=== PATIENT | female | born 1980 | race Caucasian/White ===

== ENCOUNTER 2016-12-19 11:14 | Emergency (ER) | payer MEDICAID ==
[2010-02-22 22:03] VITALS: BMI 35.5
== END 2016-12-19 13:37 | disposition home or self-care (01) ==
LOC: D.ER 11:14
DX: S00.81XA Abrasion of other part of head, initial encounter (principal); Y04.2XXA Assault by strike against or bumped into by another person, initial encounter; Y93.89 Activity, other specified; Y92.89 Other specified places as the place of occurrence of the external cause; S00.03XA Contusion of scalp, initial encounter; S40.022A Contusion of left upper arm, initial encounter; S40.021A Contusion of right upper arm, initial encounter; S80.12XA Contusion of left lower leg, initial encounter; S80.11XA Contusion of right lower leg, initial encounter; S20.219A Contusion of unspecified front wall of thorax, initial encounter; H11.30 Conjunctival hemorrhage, unspecified eye; S22.22XA Fracture of body of sternum, initial encounter for closed fracture; F17.200 Nicotine dependence, unspecified, uncomplicated

== ENCOUNTER 2016-12-23 15:32 | Emergency (ER) | payer MEDICAID ==
[2010-02-22 22:03] VITALS: BMI 35.5
[2016-12-23 17:57] LABS: APPEARANCE HAZY (CLEAR); BACTERIA FEW /hpf (NONE SEEN); BILIRUBIN NEGATIVE (NEGATIVE); COLOR STRAW (YELLOW); EPITHELIAL CELLS 0-5 /hpf (0-5); GLUCOSE NEGATIVE (NEGATIVE); KETONE NEGATIVE (NEGATIVE); LEUKOCYTE ESTERASE 2+ (NEGATIVE); NITRITE NEGATIVE (NEGATIVE); PROTEIN NEGATIVE (NEGATIVE); UROBILINOGEN NORMAL (NORMAL)
[2016-12-23 17:58] LABS: MUCUS <1+ /lpf (NONE SEEN)
== END 2016-12-23 19:00 | disposition home or self-care (01) ==
LOC: D.ER 15:32 → EDBD 15:32 → D.ER 19:00
PROVIDERS: Physician Assistant
DX: R07.89 Other chest pain (principal); S22.20XA Unspecified fracture of sternum, initial encounter for closed fracture; Y04.8XXA Assault by other bodily force, initial encounter; Y93.89 Activity, other specified; Y92.89 Other specified places as the place of occurrence of the external cause; R31.9 Hematuria, unspecified; A59.9 Trichomoniasis, unspecified; N39.0 Urinary tract infection, site not specified; F17.200 Nicotine dependence, unspecified, uncomplicated

== ENCOUNTER 2017-01-18 17:12 | Emergency (ER) | payer MEDICAID ==
[2010-02-22 22:03] VITALS: BMI 35.5
[2017-01-18 17:36] LABS: APPEARANCE CLEAR (CLEAR); BACTERIA FEW /hpf (NONE SEEN); BILIRUBIN NEGATIVE (NEGATIVE); COLOR YELLOW (YELLOW); EPITHELIAL CELLS 0-5 /hpf (0-5); GLUCOSE NEGATIVE (NEGATIVE); KETONE NEGATIVE (NEGATIVE); LEUKOCYTE ESTERASE NEGATIVE (NEGATIVE); NITRITE NEGATIVE (NEGATIVE); PROTEIN NEGATIVE (NEGATIVE); RED CELLS - URINE 0-5 /hpf (0-5); UROBILINOGEN NORMAL (NORMAL); WHITE CELLS - URINE 0-5 /hpf (0-5)
== END 2017-01-18 19:01 | disposition home or self-care (01) ==
LOC: D.ER 17:12 → EDBD 17:12 → D.ER 19:01
PROVIDERS: Emergency Medicine
DX: J01.90 Acute sinusitis, unspecified (principal); F17.200 Nicotine dependence, unspecified, uncomplicated

== ENCOUNTER 2017-03-12 17:32 | Emergency (ER) | payer MEDICAID ==
[2010-02-22 22:03] VITALS: BMI 35.5
== END 2017-03-12 20:43 | disposition home or self-care (01) ==
LOC: EDBD 17:32 → D.ER 17:32
DX: S05.02XA Injury of conjunctiva and corneal abrasion without foreign body, left eye, initial encounter (principal); X58.XXXA Exposure to other specified factors, initial encounter; Y93.89 Activity, other specified; Y92.89 Other specified places as the place of occurrence of the external cause; F17.200 Nicotine dependence, unspecified, uncomplicated

== ENCOUNTER 2017-07-06 08:37 | Emergency (ER) | payer MEDICAID ==
[2010-02-22 22:03] VITALS: BMI 35.5
== END 2017-07-06 09:15 | disposition home or self-care (01) ==
LOC: D.ER 08:37 → EDBD 08:37 → D.ER 09:15
DX: S00.12XA Contusion of left eyelid and periocular area, initial encounter (principal); X58.XXXA Exposure to other specified factors, initial encounter; Y93.89 Activity, other specified; Y92.89 Other specified places as the place of occurrence of the external cause; S05.02XA Injury of conjunctiva and corneal abrasion without foreign body, left eye, initial encounter; M54.5 Low back pain; F17.200 Nicotine dependence, unspecified, uncomplicated

== ENCOUNTER 2017-07-16 20:02 | Emergency (ER) | payer MEDICAID ==
[2010-02-22 22:03] VITALS: BMI 35.5
== END 2017-07-16 20:39 | disposition home or self-care (01) ==
LOC: D.ER 20:02
DX: S46.912A Strain of unspecified muscle, fascia and tendon at shoulder and upper arm level, left arm, initial encounter (principal); X58.XXXA Exposure to other specified factors, initial encounter; Y93.79 Activity, other specified sports and athletics; Y92.89 Other specified places as the place of occurrence of the external cause; M25.512 Pain in left shoulder; M54.2 Cervicalgia; F17.200 Nicotine dependence, unspecified, uncomplicated

== ENCOUNTER 2017-08-24 06:48 | Emergency (ER) | payer MEDICAID ==
[2010-02-22 22:03] VITALS: BMI 35.5
[2017-08-24 08:01] LABS: HCG URINE NEGATIVE (NEGATIVE)
[2017-08-24 08:07] LABS: BASOPHILS 0.4 % (0-2); EOSINOPHILS 4.5 % (0-7); HEMATOCRIT 33.9 % (36.0-48.0); HEMOGLOBIN 10.9 g/dL (12-16); IMMATURE GRANULOCYTES 0.2 % (0-5); LYMPHOCYTES 40.8 % (15-50); MCH 26.6 pg (26.0-34.0); MCHC 32.2 g/dL (31.0-37.0); MCV 82.7 fL (80.0-100.0); MEAN PLATELET VOLUME 10.2 fL (7.4-10.4); MONOCYTES 10.6 % (2-11); NEUTROPHILS 43.5 % (40-80); RDW 14.3 % (11.5-14.5); WBC 5.6 10x3/uL (4.8-10.8)
[2017-08-24 08:09] LABS: APPEARANCE HAZY (CLEAR); BACTERIA MODERATE /hpf (NONE SEEN); BILIRUBIN NEGATIVE (NEGATIVE); COLOR YELLOW (YELLOW); GLUCOSE NEGATIVE (NEGATIVE); KETONE SMALL mg/dL (NEGATIVE); MUCUS >1+ /lpf (NONE SEEN); NITRITE NEGATIVE (NEGATIVE); PROTEIN NEGATIVE (NEGATIVE); RED CELLS - URINE 0-5 /hpf (0-5); UROBILINOGEN NORMAL (NORMAL); WHITE CELLS - URINE 0-5 /hpf (0-5)
[2017-08-24 08:11] LABS: ALBUMIN 3.6 g/dL (3.4-5.0); ALKALINE PHOSPHATASE 65 U/L (46-116); ALT (SGPT) 18 U/L (10-68); BILIRUBIN - TOTAL 0.53 mg/dL (0.2-1.3); CALC OSMOLALITY 270 mosm/kg (275-300); CALCIUM 8.8 mg/dL (8.5-10.1); CARBON DIOXIDE 26.2 mmol/L (21.0-32.0); CHLORIDE - SERUM 104 mmol/L (98-107); CREATININE - SERUM 0.9 mg/dL (0.6-1.3); GLUCOSE 74 mg/dL (74-106); POTASSIUM - SERUM 3.2 mmol/L (3.5-5.1); PROTEIN - SERUM 7.3 g/dL (6.4-8.2); SODIUM 136 mmol/L (136-145); UREA NITROGEN 12 mg/dL (7-18); eGFR NON AFRICAN AMERICAN 75 mL/min (90-120)
[2017-08-24 08:17] LABS: PLATELET COUNT 245 10x3/uL (130-400)
== END 2017-08-24 08:56 | disposition home or self-care (01) ==
LOC: D.ER 06:48
PROVIDERS: Emergency Medicine
DX: S00.83XA Contusion of other part of head, initial encounter (principal); Y04.2XXA Assault by strike against or bumped into by another person, initial encounter; Y93.89 Activity, other specified; Y92.029 Unspecified place in mobile home as the place of occurrence of the external cause; F17.200 Nicotine dependence, unspecified, uncomplicated

== ENCOUNTER 2017-09-05 05:01 | Emergency (ER) | payer MEDICAID ==
[2010-02-22 22:03] VITALS: BMI 35.5
== END 2017-09-05 05:33 | disposition home or self-care (01) ==
LOC: D.ER 05:01
DX: S70.01XA Contusion of right hip, initial encounter (principal); Y04.2XXA Assault by strike against or bumped into by another person, initial encounter; Y93.89 Activity, other specified; Y92.89 Other specified places as the place of occurrence of the external cause; S00.83XA Contusion of other part of head, initial encounter; F17.200 Nicotine dependence, unspecified, uncomplicated

== ENCOUNTER 2017-09-15 18:51 | Emergency (ER) | payer MEDICAID ==
[2010-02-22 22:03] VITALS: BMI 35.5
== END 2017-09-15 20:45 | disposition home or self-care (01) ==
LOC: D.ER 18:51
DX: S62.315A Displaced fracture of base of fourth metacarpal bone, left hand, initial encounter for closed fracture (principal); Y04.2XXA Assault by strike against or bumped into by another person, initial encounter; Y93.89 Activity, other specified; Y92.029 Unspecified place in mobile home as the place of occurrence of the external cause; F17.200 Nicotine dependence, unspecified, uncomplicated

== ENCOUNTER 2017-09-22 08:54 | Emergency (ER) | payer MEDICAID ==
[2010-02-22 22:03] VITALS: BMI 35.5
== END 2017-09-22 09:37 | disposition home or self-care (01) ==
LOC: D.ER 08:54
DX: S62.603G Fracture of unspecified phalanx of left middle finger, subsequent encounter for fracture with delayed healing (principal); X58.XXXD Exposure to other specified factors, subsequent encounter

== ENCOUNTER 2017-10-02 13:12 | Emergency (ER) | payer MEDICAID ==
[2010-02-22 22:03] VITALS: BMI 35.5
== END 2017-10-02 16:43 | disposition home or self-care (01) ==
LOC: D.ER 13:12
DX: H11.152 Pinguecula, left eye (principal); M79.645 Pain in left finger(s); F17.200 Nicotine dependence, unspecified, uncomplicated

== ENCOUNTER 2018-02-20 08:08 | Emergency (ER) | payer MEDICAID ==
[2010-02-22 22:03] VITALS: BMI 35.5
== END 2018-02-20 08:09 | disposition home or self-care (01) ==
LOC: D.ER 08:08
DX: H57.12 Ocular pain, left eye (principal); R10.9 Unspecified abdominal pain; S76.012A Strain of muscle, fascia and tendon of left hip, initial encounter; Y04.2XXA Assault by strike against or bumped into by another person, initial encounter; Y93.89 Activity, other specified; Y92.89 Other specified places as the place of occurrence of the external cause; F17.200 Nicotine dependence, unspecified, uncomplicated

== ENCOUNTER 2018-06-27 12:32 | Emergency (ER) | payer MEDICAID ==
[2010-02-22 22:03] VITALS: BMI 35.5
== END 2018-06-27 15:07 | disposition left against medical advice (07) ==
LOC: D.ER 12:32
DX: R20.2 Paresthesia of skin (principal)

== ENCOUNTER 2019-03-25 19:56 | Emergency (ER) | payer SELFPAY ==
[2019-03-25 20:13] VITALS: BMI 35.5
[2019-03-25] MEDS ORDERED: NAPROSYN500 MG PO (20:48)
[2019-03-25 21:08] VITALS: BP 130/69
== END 2019-03-25 21:08 | disposition home or self-care (01) ==
LOC: D.ER 19:56
DX: S62.337A Displaced fracture of neck of fifth metacarpal bone, left hand, initial encounter for closed fracture (principal); Y04.2XXA Assault by strike against or bumped into by another person, initial encounter; Y93.89 Activity, other specified; Y92.019 Unspecified place in single-family (private) house as the place of occurrence of the external cause; S06.0X9A Concussion with loss of consciousness of unspecified duration, initial encounter

== ENCOUNTER 2019-06-29 12:59 | Emergency (ER) | payer SELFPAY ==
[~2019-06-29] VITALS: Ht 167.6 cm; Wt 63.6 kg
[~2019-06-29 12:59] MED LIST: NAPROSYN500 MG PO
[2019-06-29 13:06] VITALS: Ht 167.6 cm; Wt 63.6 kg
[2019-06-29 13:52] LABS: ALBUMIN 3.1 g/dL (3.4-5.0); ALKALINE PHOSPHATASE 55 U/L (46-116); ALT (SGPT) 12 U/L (10-68); BILIRUBIN - TOTAL 0.52 mg/dL (0.2-1.3); CALC OSMOLALITY 280 mosm/kg (275-300); CALCIUM 8.8 mg/dL (8.5-10.1); CARBON DIOXIDE 28.3 mmol/L (21.0-32.0); CHLORIDE - SERUM 108 mmol/L (98-107); CREATININE - SERUM 0.8 mg/dL (0.6-1.3); GLUCOSE 92 mg/dL (74-106); PROTEIN - SERUM 6.5 g/dL (6.4-8.2); SODIUM 141 mmol/L (136-145); UREA NITROGEN 12 mg/dL (7-18); eGFR NON AFRICAN AMERICAN 85 mL/min (90-120)
[2019-06-29 14:03] LABS: CREATINE KINASE 50 UL (21-215); TROPONIN-I < 0.017 ng/mL (0.000-0.060)
[2019-06-29 14:09] LABS: BASOPHILS 0.8 % (0-2); EOSINOPHILS 4.7 % (0-7); HEMATOCRIT 35.8 % (36.0-48.0); HEMOGLOBIN 11.7 g/dL (12-16); LYMPHOCYTES 38.6 % (15-50); MCH 26.9 pg (26.0-34.0); MCHC 32.7 g/dL (31.0-37.0); MCV 82.3 fL (80.0-100.0); MEAN PLATELET VOLUME 9.8 fL (7.4-10.4); MONOCYTES 14.2 % (2-11); NEUTROPHILS 41.7 % (40-80); PLATELET COUNT 245 10x3/uL (130-400); RBC 4.35 10x6/uL (4.00-5.40); RDW 15.6 % (11.5-14.5); WBC 4.9 10x3/uL (4.8-10.8)
[2019-06-29] MEDS ORDERED: ROBAXIN500 MG PO (14:52)
[2019-06-29] MEDS ORDERED: NAPROSYN500 MG PO (14:52)
[2019-06-29 15:50] VITALS: BP 114/63
== END 2019-06-29 15:50 | disposition home or self-care (01) ==
LOC: D.ER 12:59
PROVIDERS: Family Medicine
DX: R09.1 Pleurisy (principal); F17.200 Nicotine dependence, unspecified, uncomplicated

== ENCOUNTER 2020-05-04 11:07 | Emergency (ER) | payer OTHER ==
[~2020-05-04] VITALS: Ht 167.6 cm; Wt 72.7 kg
[~2020-05-04 11:07] MED LIST changes: +ROBAXIN500 MG PO
[2020-05-04 11:11] VITALS: Ht 167.6 cm; Wt 72.7 kg
[2020-05-04] MEDS ORDERED: TYLENOL W/CODEI1 TAB PO (11:44)
[2020-05-04] MEDS ORDERED: KEFLEX500 MG PO (11:44)
[2020-05-04] MEDS ORDERED: NAPROSYN500 MG PO (11:44)
[2020-05-04 12:44] VITALS: BP 128/72
--- NOTE | 2020-05-08 22:39 | NUR ---
PT CALLED AT 1900 STATING SHE WAS HERE A FEW DAYS AGO WITH A CUT ELBOW. STATES SHE RECEIVED STITCHES AND PAIN MED. STATES, "BLANCHE TOLD ME IF THIS MED DIDN'T WORK TO CALL AND HE WOULD GIVE ME SOMETHING ELSE. I BENT MY ELBOW AND THE TOP STITCH POPPED OUT AND THE PAIN MED IS NOT WORKING". I SPOKE WITH JOHNIE KINGSTON RN IN ER, WHO SPOKE WITH BLANCHE, WHO ASKED THAT I TELL PT TO ADD IBUPROFEN OTC 800 MG WITH THE TYLENOL #3. I PASSED THAT ALONG TO THE PT, WHICH AT THAT POINT STATED SHE WAS OUT OF PAIN MEDICATION ALL TOGETHER. I SUGGESTED SHE SEEK MEDICAL ATTENTION FOR FURTHER EVAL AND TX.
== END 2020-05-11 07:03 | disposition home or self-care (01) ==
LOC: D.ER 11:07
DX: S51.011A Laceration without foreign body of right elbow, initial encounter (principal); W18.2XXA Fall in (into) shower or empty bathtub, initial encounter; Y93.9 Activity, unspecified; Y92.9 Unspecified place or not applicable

== ENCOUNTER 2021-03-14 13:53 | Emergency (ER) | payer OTHER ==
[~2021-03-14] VITALS: Ht 167.6 cm; Wt 63.6 kg
[~2021-03-14 13:53] MED LIST changes: +KEFLEX500 MG PO; +TYLENOL W/CODEI1 TAB PO
[2021-03-14 13:58] VITALS: BP 137/81; Ht 167.6 cm; Wt 63.6 kg
[2021-03-14] MEDS ORDERED: DICLOFENAC SODI50 MG PO (14:13)
[2021-03-14] MEDS ORDERED: MEDROL DOSE PACK4 MG PO (14:13)
== END 2021-03-14 15:15 | disposition home or self-care (01) ==
LOC: D.ER 13:53
DX: G56.03 Carpal tunnel syndrome, bilateral upper limbs (principal); M54.12 Radiculopathy, cervical region